=== PATIENT | male | born 1965 | race Caucasian/White ===

== ENCOUNTER 2018-09-18 05:53 | Day surgery (SDC) | payer BC, OTHER ==
[~2018-09-18] VITALS: Ht 175.3 cm; Wt 76.0 kg
[2018-09-18] MEDS ORDERED: WELLBUTRIN (06:52)
[2018-09-18] MEDS ORDERED: BP MEDICATION (06:52)
[2018-09-18 06:55] VITALS: Ht 175.3 cm; Wt 76.0 kg
[2018-09-18 07:32] VITALS: BP 118/84; PULSE 74; RESP 18
--- NOTE | 2018-09-18 07:55 | PREAC ---
Date/Time of Note Date/Time of Note DATE: 09/18/18 TIME: 07:54 Anesthesia Eval and Record Evaluation Time Pre-Procedure Interview DATE: 09/18/18 TIME: 07:54 Age 53 Sex male NPO: 8 hrs Preoperative diagnosis screening Planned procedure colonoscopy Past Medical History Past Medical History: Includes Cardio: HTN Surgery & Anesthesia Issues No known issue Meds Anticoagulation: No Beta Azalea within 24 hr: No Reason Beta Azalea not given: Pt. not on B-Azalea Reported Medications [Bp Medication] No Conflict Check 09/18/18 [Wellbutrin] No Conflict Check 09/18/18 Meds reviewed: Yes Allergies Coded Allergies: No Known Allergy (Unverified , 09/18/18) Allergies Reviewed: Yes Labs/Studies Labs Reviewed: Reviewed by anesthesiologist test: N/A Pre-procedure Exam Last vitals Vital Signs Date Temp Pulse Resp B/P (MAP) Pulse Ox O2 O2 Flow FiO2 Time Delivery Rate 09/18/18 98.2 74 18 118/84 96 Room Air 07:32 (95) Airway: Adequate mouth opening, Adequate thyromental dist Mallampati: Mallampati IV Teeth: Normal Lung: Normal Heart: Normal ASA Physical Status ASA physical status: 2 Emergency: None Pre-operative Attestations Prior to commencing anesthesia and surgery, the patient was re-evaluated, there was verification of: *The patient's identity *The results of appropriate recent lab work and preoperative vital signs *The above evaluation not changing prior to induction *Anesthetic plan, risk benefits, alternative and complications discussed with patient/family; questions answered; patient/family understands, accepts and wishes to proceed. ZORAN GARZA DO Sep 18, 2018 07:55
[2018-09-18] MEDS ORDERED: LIDOCAINE 2% (SDV) 5 ML INJ ONE (07:56)
[2018-09-18] MEDS ORDERED: PROPOFOL 20 ML ONE ×2 (07:56→07:58)
[2018-09-18] MEDS ORDERED: FENTAnyl 50 MCG/ML VIAL ONE (07:56)
[2018-09-18] MEDS ORDERED: MIDAZOLAM 1 MG/ML 2 ML INJ ONE (07:56)
[2018-09-18] MEDS ORDERED: hydrALAzine 20 MG INJ IV PRN (08:00)
--- NOTE | 2018-09-18 09:10 | PAC ---
Date/Time of Note Date/Time of Note DATE: 09/18/18 TIME: 09:09 Post-Anesthesia Notes Post-Anesthesia Note Last documented vital signs Vital Signs Date Temp Pulse Resp B/P (MAP) Pulse Ox O2 O2 Flow FiO2 Time Delivery Rate 09/18/18 98.2 65 18 120/65 96 Room Air 0900 Activity: WNL Respiratory function: WNL Cardiovascular function: WNL Mental status: Baseline Pain reasonably controlled: Yes Hydration appropriate: Yes Nausea/Vomiting absent: Yes ZORAN GARZA DO Sep 18, 2018 09:10
[2018-09-18 09:22] VITALS: BP 122/85; RESP 20
[2018-09-18 09:33] VITALS: BP 101/54; RESP 20
== END 2018-09-18 15:32 | disposition home or self-care (01) ==
LOC: GIL 05:53
PROVIDERS: ATTEND Internal Medicine Gastroenterology
DX: Z12.11 Encounter for screening for malignant neoplasm of colon (principal); D12.5 Benign neoplasm of sigmoid colon; K64.8 Other hemorrhoids; D12.3 Benign neoplasm of transverse colon; I10 Essential (primary) hypertension
CPT/HCPCS: 45380; 45385; 88305; J2250; J3010; Z7610